=== PATIENT | male | born 2000 | race American Indian/Alaskan Native ===

== ENCOUNTER 2021-10-18 22:45 | Emergency (ER) | payer SELFPAY ==
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
[2021-10-19] MEDS ORDERED: TETANUS,DIPHTHERIA TOXOID ADULT 0.5 ML INJ IM ONE (01:43)
[2021-10-19 02:28] VITALS: BP 115/54
== END 2021-10-19 02:30 | disposition home or self-care (01) ==
LOC: ED 22:45
DX: S81.811A Laceration without foreign body, right lower leg, initial encounter (principal); F12.90 Cannabis use, unspecified, uncomplicated; W34.09XA Accidental discharge from other specified firearms, initial encounter; Y93.89 Activity, other specified; Y92.89 Other specified places as the place of occurrence of the external cause; Y99.8 Other external cause status
CPT/HCPCS: 90471; 90714; 99283